=== PATIENT | male | born 1960 ===

== ENCOUNTER 2017-04-11 18:51 | Emergency (ER) | payer BC, OTHER ==
[2017-04-11 19:04] VITALS: BP 161/91
[2017-04-11] MEDS ORDERED: Tetan/Diph/Pertus SYR(Tdap)* 0.5 ML SYR(BOOSTRIX) use SYR IM ONE (19:38)
[2017-04-11] MEDS ORDERED: DOXYcycline CAP(*) 100 MG PO ONE (19:39)
--- NOTE | 2017-04-11 19:46 | UC ---
Ajith Galaviz Nikita, scribed for Shea Chatman MD on 04/11/17 at 1939 . Skin Complaint HPI - HPI Summary HPI Summary: This patient is a 56 year old M presenting to [facility] with a chief complaint of a tick since earlier today while at work. The pt reports it may have been there since yesterday while he was out in the love. The CC is described as under the R arm. The patient rates the pain 0/10 in severity. Symptoms aggravated by nothing. Symptoms alleviated by nothing. Not immunocompromised. Patient's medications reviewed this visit. - History of Current Complaint Chief Complaint: UCSkin Time Seen by Provider: 04/11/17 19:13 Stated Complaint: TICK REMOVAL Hx Obtained From: Patient Onset/Duration: Sudden Onset, Lasting Days, Still Present Skin Exposure Onset/Duration: Days Ago Current Severity: None Pain Intensity: 0 Pain Scale Used: 0-10 Numeric Location: Discrete - under the R arm Aggravating Factor(s): Nothing Alleviating Factor(s): Nothing - Allergy/Home Medications Allergies/Adverse Reactions: Allergies Allergy/AdvReac Type Severity Reaction Status Date / Time No Known Allergies Allergy Verified 04/11/17 19:04 Home Medications: Home Medications NK [No Home Medications Reported] 04/11/17 [History Confirmed 04/11/17] Review of Systems Constitutional: Other - No fever Skin: Other - tick under the R arm All Other Systems Reviewed And Are Negative: Yes PMH/Surg Hx/FS Hx/Imm Hx Previously Healthy: Yes Endocrine History: Other Other Endocrine History: No DM Cardiovascular History: Other Other Cardiovascular History: No HTN - Surgical History Surgical History: Yes Surgery Procedure, Year, and Place: appendectomy - Family History Known Family History: Positive: Hypertension - Social History Occupation: Employed Full-time Lives: With Family Alcohol Use: Occasionally Substance Use Type: None Smoking Status (MU): Former Smoker Physical Exam Triage Information Reviewed: Yes Vital Signs: Initial Vital Signs Temp 98.1 F 04/11/17 18:59 Pulse 83 04/11/17 18:59 Resp 20 04/11/17 18:59 BP 161/91 04/11/17 18:59 Pulse Ox 97 04/11/17 18:59 Vital Signs Reviewed: Yes Eyes: Positive: Conjunctiva Clear ENT: Positive: Hearing grossly normal Neck: Positive: Supple, Nontender, No Lymphadenopathy Respiratory: Positive: No respiratory distress, No accessory muscle use Cardiovascular: Positive: RRR, No Murmur, Pulses Normal Musculoskeletal: Positive: Strength Intact Neurological: Positive: Alert, Muscle Tone Normal Psychological Exam: Normal Skin: Positive: Other - tick to right back posterior axillary line, burrowed - alive - easily removed with tick removal - intact no bleeding Course/Dx - Course Course Of Treatment: PT with tick right posterior axillary line - removed intact. will give tdap. after discussion pt requesting doxy prophylaxis. reviewed wound care with pt - Diagnoses Provider Diagnoses: tick bite. tetanus booster Discharge - Discharge Plan Condition: Stable Disposition: HOME Patient Education Materials: Diphtheria/Acellular Pertussis/Tetanus Booster Vaccine (By injection), Tick Bite (ED) Referrals: Pradip Mejía MD [Primary Care Provider] - Additional Instructions: - You had a tick removed today. You were given the 1 time prophylaxis treatment for Lyme disease - you also received a tetanus booster - your arm will likely be sore tomorrow - this is normal - okay to take ibuprofen (motrin, advil) and tylenol every 3 hours for pain - Contact your doctor or return with questions or concerns The documentation as recorded by the Ajith calderon Nikita accurately reflects the service I personally performed and the decisions made by , Shea Chatman MD.
== END 2017-04-11 20:00 | disposition home or self-care (01) ==
LOC: UCEAST 18:51
DX: S40.861A Insect bite (nonvenomous) of right upper arm, initial encounter (principal); W57.XXXA Bitten or stung by nonvenomous insect and other nonvenomous arthropods, initial encounter; Y93.9 Activity, unspecified; Y92.89 Other specified places as the place of occurrence of the external cause; Y99.0 Civilian activity done for income or pay; Z23 Encounter for immunization; Z87.891 Personal history of nicotine dependence
CPT/HCPCS: 90471; 90715; 99202; A9270-GY; G0463